=== PATIENT | male | born 1960 | race Caucasian/White ===

== ENCOUNTER 2019-03-27 10:12 | Day surgery (SDC) | payer BC ==
[2019-03-25 14:55] VITALS: BMI 29.8
[~2019-03-27 10:12] MED LIST: LACTATED RINGERS 1,000 ML IV SCH; LIDOCAINE 1% 20 ML VIAL (10MG/ML) FOR IV START INTRADERMA PRN
[2019-03-27 10:50] VITALS: RESP 16; TEMP 98
[2019-03-27] MEDS ORDERED: LIDOCAINE 1% INJ 10MG/ML (20 ML MDV) ONE (11:36)
[2019-03-27] MEDS ORDERED: GLYCOPYRROLATE 0.2 MG/ML 2 ML VIAL ONE (11:36)
[2019-03-27] MEDS ORDERED: PROPOFOL 10 MG/ML 20 ML VIAL IV ONE (11:36)
--- NOTE | 2019-03-27 11:46 | P.PCN ---
Date of Procedure: 03/27/19 Procedure(s) Performed: BRIEF HISTORY: Patient is a 59-year-old, pleasant, white male, scheduled for an upper endoscopy as a part of surveillance of long-standing history of GERD and Reich's esophagus. Last EGD was in 2014. PROCEDURE PERFORMED: Esophagogastroduodenoscopy with biopsy. PREOPERATIVE DIAGNOSIS: GERD/Reich's esophagus. IV sedation per anesthesia. PROCEDURE: After informed consent was obtained, the patient was brought into the endoscopy unit. IV sedation was administered by Anesthesia under continuous monitoring. Initially the Olympus GIF-140 video endoscope was inserted into the mouth. Esophagus intubated without any difficulty. It was gradually advanced into the stomach and duodenum and carefully examined. The bulb and the second part of the duodenum appeared normal. The scope at this time was withdrawn to the stomach, adequately insufflated with air, and upon careful examination, mucosa of the antrum, body, cardia and the fundus appeared normal. The scope was then withdrawn into the esophagus. The GE junction was located at 45 cm from the incisors. Small sliding Hiatal hernia noted. There was a short segment of Reich's esophagus extending 3 mm proximal to the GE junction which was biopsied. The e rest of the sophagus appeared normal. There were no erosions or ulcerations seen and the patient tolerated the procedure well. IMPRESSION: 1. Short segment Reich's esophagus status post biopsy. 2. Small sliding type hiatal hernia. RECOMMENDATIONS: The findings of this examination were discussed with the patient as well as his family. He was advised to follow with the biopsy results. He will remain on omeprazole 20 mg daily and follow antireflux m easures. If the biopsy does not show any evidence of dysphagia, he can have a repeat upper endoscopy in 2-3 years.
[2019-03-27 12:08] VITALS: BP 123/82; PULSE 93
== END 2019-03-27 12:17 | disposition home or self-care (01) ==
LOC: ORWHC2ENDO 10:12
PROVIDERS: ATTEND Internal Medicine Gastroenterology
DX: K22.70 Barrett's esophagus without dysplasia (principal); K21.0 Gastro-esophageal reflux disease with esophagitis; K44.9 Diaphragmatic hernia without obstruction or gangrene; I10 Essential (primary) hypertension; E78.5 Hyperlipidemia, unspecified; F17.210 Nicotine dependence, cigarettes, uncomplicated; E66.01 Morbid (severe) obesity due to excess calories; Z68.34 Body mass index [BMI] 34.0-34.9, adult; Z79.1 Long term (current) use of non-steroidal anti-inflammatories (NSAID); Z79.899 Other long term (current) drug therapy
CPT/HCPCS: 88305; 43239; J2001; J2704

== ENCOUNTER 2020-01-27 10:46 | Emergency (ER) | payer BC ==
[2020-01-27 11:04] VITALS: TEMP 97.9
[2020-01-27] MEDS ORDERED: CYCLOBENZAPRINE 10 MG TAB PO STA (11:21)
[2020-01-27] MEDS ORDERED: HYDROmorphone 1 MG/ML 1 ML SYRINGE IM STA (11:21)
[2020-01-27] MEDS ORDERED: methylPREDNISolone SOD SUCCI 125 MG/2 ML VIAL IM ONE (11:39)
--- NOTE | 2020-01-27 11:58 | XR ---
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 There is a transitional lumbosacral segment again noted as a sacralized L5. Bilateral assimilation joints with the sacrum show spurring and sclerosis. Facet arthropathy mid to lower lumbar spine. Mild degenerative disc space narrowing throughout. Trace grade 1 retrolisthesis at L2/L3 and L1-L2. Vertebral body heights are preserved. IMPRESSION: 1. Transitional lumbosacral segment denoted as a sacralized L5 with bilateral mildly degenerative ass imilation joints with the sacrum. 2. Mild multilevel degenerative disc disease. Facet arthropathy mid to lower lumbar spine. 3. Degenerative grade 1 retrolisthesis at L1-L2 and L2-L3. 4. Slight rotary dextroconvex curvature can be secondary to a subtle scoliosis or positional/muscle s pasm.
[2020-01-27 12:15] VITALS: BP 130/98; PULSE 112; RESP 18
--- NOTE | 2020-01-27 12:37 | ED ---
Back Pain HPI - General Chief Complaint: Back Pain/Injury Stated Complaint: back pain Time Seen by Provider: 01/27/20 11:03 Source: patient, RN notes reviewed Limitations: no limitations - Related Data Home Medications Medication Instructions Recorded Confirmed Atorvastatin [Lipitor] 20 mg PO DAILY 03/25/19 03/27/19 Chlorthalidone 25 mg PO DAILY 03/25/19 03/27/19 Cyanocobalamin (Vitamin B-12) 1,000 mcg PO DAILY 03/25/19 03/27/19 [Vitamin B-12] Meloxicam [Mobic] 7.5 mg PO BID 03/25/19 03/27/19 Multivitamins, Thera [Multivitamin 1 tab PO DAILY 03/25/19 03/27/19 (formulary)] Omeprazole 40 mg PO BID 03/25/19 03/27/19 amLODIPine [Norvasc] 5 mg PO DAILY 03/25/19 03/27/19 lisinopriL 20 mg PO DAILY 03/25/19 03/27/19 Previous Rx's Medication Instructions Recorded Cyclobenzaprine [Flexeril] 10 mg PO TID PRN #15 tab 01/27/20 HYDROcodone/APAP 7.5-325MG [Branch 1 tab PO Q6HR PRN 3 Days #12 tab 01/27/20 7.5-325] predniSONE 50 mg PO DAILY #5 tab 01/27/20 Allergies Allergy/AdvReac Type Severity Reaction Status Date / Time No Known Allergies Allergy Verified 01/27/20 11:01 Review of Systems ROS Statement: Those systems with pertinent positive or pertinent negative responses have been documented in the HPI. ROS Other: All systems not noted in ROS Statement are negative. Past Medical History Past Medical History: GERD/Reflux, Hyperlipidemia, Hypertension Additional Past Medical History / Comment(s): Barretts esophagus History of Any Multi-Drug Resistant Organisms: None Reported Additional Past Surgical History / Comment(s): EGD with polyps removed Past Anesthesia/Blood Transfusion Reactions: Previous Problems w/ Anesthesia Past Psychological History: No Psychological Hx Reported Smoking Status: Current every day smoker Past Alcohol Use History: Rare Past Drug Use History: None Reported - Past Family History Mother Family Medical History: No Reported History General Exam Limitations: no limitations Course Vital Signs 01/27/20 01/27/20 11:01 12:14 Temperature 97.9 F Pulse Rate 98 112 H Respiratory 16 18 Rate Blood Pressure 138/90 130/98 O2 Sat by Pulse 95 97 Oximetry Disposition Clinical Impression: Strain of lumbar region Disposition: HOME SELF-CARE Condition: Stable Instructions (If sedation given, give patient instructions): Acute Low Back Pain (ED) Additional Instructions: Please return to the Emergency Department if symptoms worsen or any other concerns. Prescriptions: Cyclobenzaprine [Flexeril] 10 mg PO TID PRN #15 tab PRN Reason: Muscle Spasm HYDROcodone/APAP 7.5-325MG [Branch 7.5-325] 1 tab PO Q6HR PRN 3 Days #12 tab PRN Reason: pain predniSONE 50 mg PO DAILY #5 tab Is patient prescribed a controlled substance at d/c from ED?: Yes When asked, does pt state using other controlled substances?: No If prescribed controlled substance>3 days was MAPS reviewed?: Prescribed <3 Days If opioid is for acute pain is fill amount 7 days or less?: Yes If Rx opioid, was Start Talking consent form obtained?: Yes Referrals: Jonatan Rajan DO [Primary Care Provider] - 1-2 days Time of Disposition: 12:37
== END 2020-01-27 12:41 | disposition home or self-care (01) ==
LOC: EC 10:46
DX: S39.012A Strain of muscle, fascia and tendon of lower back, initial encounter (principal); I10 Essential (primary) hypertension; K21.9 Gastro-esophageal reflux disease without esophagitis; E78.5 Hyperlipidemia, unspecified; F17.200 Nicotine dependence, unspecified, uncomplicated; Z79.1 Long term (current) use of non-steroidal anti-inflammatories (NSAID); Z79.899 Other long term (current) drug therapy; X58.XXXA Exposure to other specified factors, initial encounter
CPT/HCPCS: 72110; 99283; 96372 ×2; J2930; J1170